=== PATIENT | male | born 1945 | race Caucasian/White ===

== ENCOUNTER 2021-10-21 17:39 | Emergency (ER) | payer OTHER ==
[~2021-10-21] VITALS: Ht 175.3 cm; Wt 74.8 kg
[2021-10-21] MEDS ORDERED: CLOPIDOGREL BIS75 MG (17:48)
[2021-10-21] MEDS ORDERED: METFORMIN HCL500 M4 (17:48)
[2021-10-21] MEDS ORDERED: LOPRESSOR25 MG (17:48)
[2021-10-21] MEDS ORDERED: ROSUVASTATIN CAL5 MG (17:49)
== END 2021-10-21 21:13 | disposition home or self-care (01) ==
LOC: ER 17:39
DX: K29.70 Gastritis, unspecified, without bleeding (principal)

== ENCOUNTER 2023-10-26 21:46 | Inpatient (IN) | payer OTHER ==
[~2023-10-26] VITALS: Ht 172.7 cm; Wt 72.6 kg
[~2023-10-26 21:46] MED LIST: CLOPIDOGREL BIS75 MG; LOPRESSOR25 MG; METFORMIN HCL500 M4; ROSUVASTATIN CAL5 MG
--- NOTE | 2023-10-26 21:54 | NUR ---
PTE ALERTA Y ORIENTADO X3 EN COMPANIA DE ESPOSA REFIERE JAMEL RPOR DOLOR EN LA CUADRANTE INFERIOIR ISAURA DEL ABDOMEN. SE LUIS S/V Y SE COLOCA EN OBSERVACION.
[2023-10-26] MEDS ORDERED: METRONIDAZOLE/SODIUM CHLORIDE 500 MG/100 ML PIGGYBACK IV ONE (23:00)
--- NOTE | 2023-10-26 23:14 | NUR ---
SE LE ORIENTA A PACIENTE SOBRE LA ORDEN MEDICA, REFIERE ENTENDER LAS MISMAS. SE CANALIZA Y SE LE COLOCA H/L, SE LE ADMINISTRAN LOS MEDICAMENTOS Y SE LE REALIZA CT JAMES LA ORDEN MEDICA.
[2023-10-26 23:49] LABS: HEMATOCRIT 32.4 % (39.0-48.0); HEMOGLOBIN 11.3 g/dL (13-16.00); MEAN CELL VOLUME 93.3 fL (80.0-100.00); MEAN CORPUSCULAR HEMOGLOBIN 32.7 pg (27.00-32.0); PLATELET COUNT 300 K/uL (150-450); RED BLOOD COUNT 3.47 M/uL (4.00-6.00); RED CELL DISTRIBUTION WIDTH 13.2 % (11.5-14.5)
[2023-10-27 00:14] LABS: ALBUMIN 3.4 gm/dL (3.4-5.0); BILIRUBIN TOTAL 0.52 mg/dL (0.3-1.2); CALCIUM 8.8 mg/dL (8.5-10.1); CREATININE SERUM 1.22 mg/dL (0.70-1.30); GFR 57.45; GLOBULINA 4.3 G/DL (2.4-3.5); POTASSIUM 4.43 mEq/L (3.5-5.1); TOTAL PROTEIN 7.7 gm/dL (6.4-8.2)
[2023-10-27 01:34] LABS: PH,URINE 6.5 (5.0-8.0); URINE APPEARANCE Clear; URINE BILIRRUBIN Negative (NEGATIVE); URINE BLOOD Negative; URINE COLOR Yellow; URINE GLUCOSE Negative (NEGATIVE); URINE LEUKOCYTE Negative; URINE NITRATE Negative; URINE PROTEIN Negative (NEGATIVE); URINE UROBILINOGEN 0.2 E.U./dl
[2023-10-27 01:37] LABS: URINE BACTERIA 12.5 uL (0.0-1933)
[2023-10-27 01:43] LABS: URINE EPITHELIAL CELLS 0.1 uL (0.0-38.8); URINE RBC 0.7 uL (0.0-20.8); URINE WBC 0 uL (0.0-23.2)
[2023-10-27] MEDS ORDERED: CIPROFLOXACIN IN 5 % DEXTROSE 400 MG/200 ML PIGGYBAG IV STA (05:54)
[2023-10-27] MEDS ORDERED: HYOSCYAMINE SULFATE 0.125 MG TAB.SUBL SL STA (05:55)
[2023-10-27] MEDS ORDERED: 0.9 % SODIUM CHLORIDE 1,000 ML IV ONE (06:00)
--- NOTE | 2023-10-27 07:08 | NUR ---
AL MOMENTO SE RECIBE PTE ALERTA Y ORIENTADO X3 EN FRED EN POSICION SEMI SENTADA. AL MOMENTO PTE SE ENCUENTRA CANALIZADO EN BRAZO ISAURA CON ANGIO #20, SE OBSERVA TAWANNA DE EDEMA Y BENDAJE LIMPIO. SE MANTIENE BAJO OBSERVACION POR CAMBIOS.
[2023-10-27] MEDS ORDERED: HYOSCYAMINE SULFATE 0.125 MG TAB.SUBL SL SCH (07:26)
[2023-10-27] MEDS ORDERED: DEXTROSE 50 % IN WATER 0.5 G/ML DISP.SYRIN IV PRN (07:30)
[2023-10-27] MEDS ORDERED: INSULIN LISPRO 1,000 UNIT/10 ML UNITS SUBCUTANEO PRN (07:30)
[2023-10-27] MEDS ORDERED: 0.9 % SODIUM CHLORIDE 1,000 ML IV SCH (07:30)
[2023-10-27] MEDS ORDERED: FAMOTIDINE/PF 20 MG in 0.9 % SODIUM CHLORIDE 100 ML IV SCH (09:00)
[2023-10-27] MEDS ORDERED: CIPROFLOXACIN IN 5 % DEXTROSE 200 ML IV SCH (09:00)
[2023-10-27] MEDS ORDERED: METRONIDAZOLE/SODIUM CHLORIDE 100 ML IV SCH (09:00)
[2023-10-27] MEDS ORDERED: MetFORMIN HCL 500 MG TABLET PO SCH (09:00)
[2023-10-27] MEDS ORDERED: LOSARTAN POTASSIUM 50 MG TABLET PO SCH (09:00)
[2023-10-28 07:59] LABS: HEMATOCRIT 31.7 % (39.0-48.0); HEMOGLOBIN 11.3 g/dL (13-16.00); MEAN CELL VOLUME 94.4 fL (80.0-100.00); MEAN CORPUSCULAR HEMOGLOBIN 33.7 pg (27.00-32.0); MEAN CORPUSCULAR HGB CONC 35.6 g/dl (32.0-36.0); PLATELET COUNT 281 K/uL (150-450); RED BLOOD COUNT 3.35 M/uL (4.00-6.00)
[2023-10-28 08:29] LABS: ALBUMIN 3.4 gm/dL (3.4-5.0); BILIRUBIN TOTAL 0.56 mg/dL (0.3-1.2); CALCIUM 8.9 mg/dL (8.5-10.1); CREATININE SERUM 1.01 mg/dL (0.70-1.30); GFR 71.44; GLOBULINA 3.3 G/DL (2.4-3.5); POTASSIUM 5.08 mEq/L (3.5-5.1); TOTAL PROTEIN 6.7 gm/dL (6.4-8.2)
[2023-10-28] MEDS ORDERED: LOSARTAN POTASSIUM 50 MG TABLET PO SCH (17:00)
[2023-10-29] MEDS ORDERED: CIPRO500 MG PO (09:15)
[2023-10-29] MEDS ORDERED: METRONIDAZOLE500 MG PO (09:16)
[2023-10-29] MEDS ORDERED: PROTONIX20 MG PO (09:16)
== END 2023-10-29 11:44 | disposition home or self-care (01) | DRG 392 ==
LOC: ER 21:47 → SEC-K 10-27 08:04 → MEDI 10-27 08:04
PROVIDERS: Emergency Medicine; ADMIT Internal Medicine; ATTEND Internal Medicine
PROC: BW21YZZ Computerized Tomography (CT Scan) of Abdomen and Pelvis using Other Contrast (ICD-10-PCS; principal; 2023-10-26)
DX: K57.32 Diverticulitis of large intestine without perforation or abscess without bleeding (principal); I10 Essential (primary) hypertension; E11.9 Type 2 diabetes mellitus without complications; Z79.84 Long term (current) use of oral hypoglycemic drugs

== ENCOUNTER 2025-06-19 07:22 | Outpatient (CLI) | payer OTHER ==
[~2025-06-19 07:22] MED LIST changes: +CIPRO500 MG PO; +METRONIDAZOLE500 MG PO; +PROTONIX20 MG PO
== END 2025-06-19 07:24 | disposition home or self-care (01) ==
LOC: SONOGRAMA 07:22
PROVIDERS: ATTEND Internal Medicine Gastroenterology
DX: R10.13 Epigastric pain (principal)